=== PATIENT | male | born 1970 | race Caucasian/White ===

== ENCOUNTER 2020-10-14 15:59 | Emergency (ER) | payer BC ==
[~2020-10-14] VITALS: Ht 175.3 cm; Wt 88.5 kg
--- NOTE | 2020-10-14 16:03 | NUR ---
AAOX3, BIB c/o worsening fever and cough with congestion x 1 week. Patient was tested positive with covid 19 at urgent care last 10/10/20. RR is even and unlabored with SP02 of 96 on RA. No apparent distress noted at this time. Awaiting MD for eval.
--- NOTE | 2020-10-14 16:10 | NUR ---
IV LINE ESTABLISHED BLOOD DRAWN AND SENT TO LAB.
[2020-10-14] MEDS ORDERED: ACETAMINOPHEN ES 500 MG TABLET PO ONE (17:00)
[2020-10-14 17:18] LABS: BASOPHILS % (AUTO) 0.4 % (0.0-2.0); EOSINOPHILS % (AUTO) 0.2 % (0.0-6.0); HEMATOCRIT 46 % (39-51); HEMOGLOBIN 15.6 g/dL (13.5-17.5); LYMPHOCYTES # (AUTO) 1.1 /CMM (0.8-4.8); LYMPHOCYTES % (AUTO) 20.5 % (20.0-44.0); MEAN CORPUSCULAR HGB CONC 34 g/dl (31.0-36.0); MEAN CORPUSCULAR VOLUME 87 fL (80-96); MONOCYTES # (AUTO) 0.4 /CMM (0.1-1.30); MONOCYTES % (AUTO) 7.1 % (2.0-12.0); NEUTROPHILS # (AUTO) 3.9 /CMM (1.8-8.9); NEUTROPHILS % (AUTO) 71.8 % (43.0-81.0); PLATELET COUNT (AUTO) 215 /CMM (150-450); RED BLOOD CELL COUNT(AUTO) 5.32 MIL/uL (4.5-6.0); WHITE BLOOD COUNT (AUTO) 5.5 K/uL (4.3-11.0)
[2020-10-14 17:27] LABS: CALCIUM, SERUM 9.2 mg/dL (8.5-10.1); CARBON DIOXIDE 29 mmol/L (21-32); CHLORIDE 101 mmol/L (98-107); GLUCOSE 117 mg/dL (74-106); POTASSIUM 3.7 mmol/L (3.5-5.1); SODIUM SERUM 140 mmol/L (136-145); UREA NITROGEN, BLOOD 15 mg/dL (7-18)
[2020-10-14 17:33] LABS: ALANINE AMINOTRANSFERASE 52 U/L (12-78); ALBUMIN 3.8 g/dL (3.4-5.0); ALKALINE PHOSPHATASE 90 U/L (46-116); ASPARTATE AMINOTRANSFERASE 24 U/L (15-37); BILIRUBIN,TOTAL 0.3 mg/dL (0.2-1.0); TOTAL PROTEIN, SERUM 8.5 g/dL (6.4-8.2)
[2020-10-14] MEDS ORDERED: ACETAMINOPHEN ES 500 MG TABLET ONE (17:38)
[2020-10-14 17:50] LABS: D-DIMER 0.34 mg/L(FEU (0.17-0.50)
[2020-10-14 18:08] LABS: C-REACTIVE PROTEIN 7.5 mg/dL (0.0-0.9); CREATINE KINASE, TOTAL 90 U/L (39-308); FERRITIN 285 ng/mL (8-388)
[2020-10-14] MEDS ORDERED: IV NS 0.9% 1,000 ML IV ONE (18:30)
--- NOTE | 2020-10-14 19:04 | NUR ---
IV removed. Catheter intact and site benign. Pressure and 4x4 applied to site. No bleeding noted. Patient discharged to home in stable condition. Written and verbal after care instructions given. Patient verbalizes understanding of instruction.
[2020-10-14 19:54] VITALS: BP 129/74
== END 2020-10-14 19:56 | disposition home or self-care (01) ==
LOC: ER 16:02
DX: U07.1 COVID-19 (principal); R00.0 Tachycardia, unspecified
CPT/HCPCS: 36415; 71045; 80048; 80076; 82550; 82728; 83605; 83615; 84145; 84484; 85025; 85378; 85730; 86140; 87040 ×2; 93005; 96360; 99285; J7030

== ENCOUNTER → 2022-09-16 | Emergency (ER) | payer BC ==
[~2022-09-16] VITALS: Ht 175.3 cm; Wt 94.3 kg
[~2022-09-16] MED LIST: CIPR500T5 PO; IV NS 0.9% 1,000 ML BAG IV ONE; KETO10TA2 PO; KETOROLAC TROMETHAMINE 15 MG/ML VIAL ONE; KETOROLAC TROMETHAMINE INJ 30 MG/ML VIAL IV ONE; ONDANSETRON HCL/PF - ER 4 MG/2 ML VIAL IV ONE; ONDANSETRON HCL/PF 4 MG/2 ML VIAL ONE; TAMS-12 PO
--- NOTE | 2022-09-16 08:20 | NUR ---
C/O RIGHT FLANK PAIN 6/10 ON PAIN SCALE. PT STATES "IT FEELS SHARP AND ACHY" SINCE 5AM TODAY. PT PLACED IN BED, PLACED IN MONITOR, KEPT COMFORTABLE AWAITING MD ORDERS.
--- NOTE | 2022-09-16 08:30 | NUR ---
URINE SAMPLE AND BLOOD COLLECTED AND SENT TO LAB,.
[2022-09-16 08:49] LABS: BASOPHILS % (AUTO) 0.5 % (0.0-2.0); EOSINOPHILS % (AUTO) 2.3 % (0.0-6.0); HEMATOCRIT 46 % (39-51); HEMOGLOBIN 15.4 g/dL (13.5-17.5); LYMPHOCYTES # (AUTO) 0.9 K/uL (0.8-4.8); LYMPHOCYTES % (AUTO) 15.6 % (20.0-44.0); MEAN CORPUSCULAR HGB CONC 34 g/dl (31.0-36.0); MEAN CORPUSCULAR VOLUME 84 fL (80-96); MONOCYTES # (AUTO) 0.5 K/uL (0.1-1.30); MONOCYTES % (AUTO) 8.5 % (2.0-12.0); NEUTROPHILS # (AUTO) 4.4 K/uL (1.8-8.9); NEUTROPHILS % (AUTO) 73.1 % (43.0-81.0); PLATELET COUNT (AUTO) 300 K/uL (150-450); RED BLOOD CELL COUNT(AUTO) 5.47 MIL/uL (4.5-6.0)
[2022-09-16 08:50] LABS: BILIRUBIN,URINE 1+ (NEGATIVE); COLOR,URINE BROWN (YELLOW); LEUKOCYTE ESTERASE ,URINE TRACE (NEGATIVE); NITRITE, URINE POSITIVE (NEGATIVE); PH,URINE 6.5 (5.0-8.0); PROTEIN,URINE 3+ mg/dl (NEGATIVE); UGLUCOSE NEGATIVE (NEGATIVE)
[2022-09-16 08:58] LABS: CALCIUM, SERUM 8.8 mg/dL (8.5-10.1)
[2022-09-16 09:07] LABS: BACTERIA,URINE Moderate /HPF (None Seen); RBC,URINE 21-50 /HPF (0-2); SQUAMOUS EPITHELIAL CELL,UR Few /HPF (None Seen)
--- NOTE | 2022-09-16 10:04 | NUR ---
IV removed. Catheter intact and site benign. Pressure and 4x4 applied to site. No bleeding noted.
--- NOTE | 2022-09-16 10:04 | NUR ---
Patient discharged to home in stable condition. Written and verbal after care instructions given. Patient verbalizes understanding of instruction.
[2022-09-16 10:05] VITALS: BP 146/98
== END | disposition home or self-care (01) ==
LOC: ER 08:49
DX: R10.9 Unspecified abdominal pain (principal); Z87.442 Personal history of urinary calculi
CPT/HCPCS: 99284; 74176; 96374; 96361; 96375; 99406; 85025; 80048; 87086; 81001; 36415; J2405 ×2; J1885

== ENCOUNTER 2023-03-31 05:13 | Emergency (ER) | payer BC ==
[~2023-03-31] VITALS: Ht 170.2 cm; Wt 90.7 kg
[~2023-03-31 05:13] MED LIST changes: -IV NS 0.9% 1,000 ML BAG IV ONE; -KETOROLAC TROMETHAMINE 15 MG/ML VIAL ONE; -KETOROLAC TROMETHAMINE INJ 30 MG/ML VIAL IV ONE; -ONDANSETRON HCL/PF - ER 4 MG/2 ML VIAL IV ONE; -ONDANSETRON HCL/PF 4 MG/2 ML VIAL ONE
--- NOTE | 2023-03-31 05:16 | NUR ---
BIBS FOR WOKE UP W/ L SIDED CP 5/10 RADIATING TO L POSTERIOR SHOULDER ONE HOUR [employer]. PT AAOX4, AMBULATORY, PLACED IN BED, VITALS CHECKED.
--- NOTE | 2023-03-31 05:18 | NUR ---
20GA TO RIGHT AC ESTABLISHED; BLOOD WORK COLLECTED AND SENT TO LAB
--- NOTE | 2023-03-31 05:38 | NUR ---
XR AT BEDSIDE
[2023-03-31 05:58] LABS: BASOPHILS # (AUTO) 0.1 K/uL (0.0-0.2); BASOPHILS % (AUTO) 0.7 % (0.0-2.0); EOSINOPHILS % (AUTO) 3.2 % (0.0-6.0); HEMATOCRIT 42 % (39-51); HEMOGLOBIN 14.6 g/dL (13.5-17.5); LYMPHOCYTES # (AUTO) 2.9 K/uL (0.8-4.8); LYMPHOCYTES % (AUTO) 40.8 % (20.0-44.0); MEAN CORPUSCULAR HGB CONC 35 g/dl (31.0-36.0); MEAN CORPUSCULAR VOLUME 85 fL (80-96); MONOCYTES # (AUTO) 0.7 K/uL (0.1-1.30); MONOCYTES % (AUTO) 9.6 % (2.0-12.0); NEUTROPHILS # (AUTO) 3.2 K/uL (1.8-8.9); NEUTROPHILS % (AUTO) 45.7 % (43.0-81.0); PLATELET COUNT (AUTO) 313 K/uL (150-450); RED BLOOD CELL COUNT(AUTO) 4.99 MIL/uL (4.5-6.0); WHITE BLOOD COUNT (AUTO) 7.1 K/uL (4.3-11.0)
[2023-03-31 06:20] LABS: CALCIUM, SERUM 9.6 mg/dL (8.5-10.1); CARBON DIOXIDE 30 mmol/L (21-32); CHLORIDE 106 mmol/L (98-107); CREATININE 0.9 mg/dL (0.6-1.3); GLUCOSE 115 mg/dL (74-106); POTASSIUM 3.9 mmol/L (3.5-5.1); SODIUM SERUM 141 mmol/L (136-145); UREA NITROGEN, BLOOD 15 mg/dL (7-18)
--- NOTE | 2023-03-31 07:20 | NUR ---
AT BED SIDE.
[2023-03-31] MEDS ORDERED: ASPIRIN 325 MG TABLET PO ONE (07:30)
--- NOTE | 2023-03-31 07:31 | NUR ---
LAB AT BED SIDE.
[2023-03-31] MEDS ORDERED: ASPIRIN 325 MG TABLET ONE (07:34)
[2023-03-31] MEDS ORDERED: IBUPROFEN 400 MG TABLET ONE (08:28)
[2023-03-31] MEDS ORDERED: IBUPROFEN 400 MG TABLET PO ONE (08:30)
[2023-03-31 08:37] VITALS: BP 140/92; TEMP 97.9
--- NOTE | 2023-03-31 08:37 | NUR ---
IV removed. Catheter intact and site benign. Pressure and 4x4 applied to site. No bleeding noted.
--- NOTE | 2023-03-31 08:37 | NUR ---
Patient discharged to home in stable condition. Written and verbal after care instructions given. Patient verbalizes understanding of instruction.
== END 2023-03-31 08:38 | disposition home or self-care (01) ==
LOC: ER 05:15
DX: R07.89 Other chest pain (principal); Z60.2 Problems related to living alone; Z79.899 Other long term (current) drug therapy
CPT/HCPCS: 36415; 71045-TC; 80048-TC; 84484-TC; 85025-TC